=== PATIENT | female | born 1965 | race Caucasian/White ===

== ENCOUNTER 2017-02-27 18:11 | Observation (INO) ==
--- NOTE | 2017-02-27 18:27 | Emergency Department Note ---
Disposition Clinical Impression: Unstable angina pectoris Disposition: Admitted As Inpatient Condition: Fair Time of Disposition: 20:30 Chest Pain HPI - General Chief Complaint: ED Chest Pain Stated Complaint: chest pain Time Seen by Provider: 02/27/17 18:21 Source: EMS Mode of arrival: ambulatory Limitations: no limitations Vital Signs Reviewed: Yes Nursing Notes Reviewed: Yes - History of Present Illness HPI Narrative: 51-year-old female history of obesity and family history of MT, presents complaint of chest pain at rest. Patient states that she had 8 out of 10 substernal chest pain with radiation to her left neck and jaw. The pain made her feel nauseated and diaphoretic, this lasted for several minutes she called an ambulance arrived 20 minutes later to give her one nitroglycerin this brought her pain down to 6 out of 10. And relieved most of the pain except for the pain in her jaw. They also gave her 324 mg of baby aspirin. Patient states that she has no history of catheter she is a remote history of a stress test a years ago. Patient is a former smoker but currently denies smoking, she smoked for about 5-10 years, she is no history of diabetes or hypertension. Patient denies fever, chills, hemoptysis, weight changes, hematochezia, melena, denies any rectal bleeding or bleeding from anywhere Pt complaint: chest pain Onset (ago): minute(s) (45) Duration: intermittent Onset: during exertion Pain Location: substernal, left chest Severity scale (1-10): 3 Quality: aching, heaviness Improves with: nitroglycerin Worsens with: nothing Associated symptoms: Reports: nausea, diaphoresis, sense of impending doom. Denies: vomiting, dyspnea, cough, leg swelling Treatments prior to arrival chest pain: aspirin, nitroglycerin - Related Data Home Medications Medication Instructions Recorded Confirmed Black Cohosh Root [Black Cohosh] 200 mg PO DAILY 02/27/17 02/27/17 Calcium/Magnesium/Zinc 2 each PO HS 02/27/17 02/27/17 [Flqvqxv-Wzcuereuk-Iehm Tab] Cyanocobalamin (Vitamin B-12) 1,000 mcg PO DAILY 02/27/17 02/27/17 [Vitamin B12] Ergocalciferol (VITAMIN D2) 100,000 unit PO JOHNS 02/27/17 02/27/17 [Vitamin D2] Fluticasone Propionate Nasal 50 mcg NS DAILY 02/27/17 02/27/17 [Flonase] Furosemide [Lasix] 80 mg PO QAM 02/27/17 02/27/17 Gabapentin [Neurontin] 100 mg PO DAILY 02/27/17 02/27/17 HYDROmorphone [Dilaudid] 4 mg PO Q8H PRN 02/27/17 02/27/17 Ibuprofen [Motrin] 600 mg PO BID 02/27/17 02/27/17 LORazepam [Ativan] 0.5 mg PO BID PRN 02/27/17 02/27/17 Levothyroxine [Synthroid] 50 mcg PO 0630 02/27/17 02/27/17 Omeprazole [PriLOSEC] 40 mg PO HS 02/27/17 02/27/17 Potassium Chloride [K-Tab ER] 20 meq PO BID 02/27/17 02/27/17 Ubidecarenone [Co Q-10] 30 mg PO DAILY 02/27/17 02/27/17 Allergies Allergy/AdvReac Type Severity Reaction Status Date / Time No Known Allergies Allergy Verified 02/27/17 18:41 All systems ED: reviewed and negative except as stated. Review of Systems: As Per HPI Constitutional: Denies: fever, chills Eyes: Denies: eye pain ENT ED: Denies: ear pain Cardiovascular: Reports: as per HPI, chest pain Respiratory: Denies: cough, dyspnea Gastrointestinal: Denies: abdominal pain Genitourinary: Denies: urgency Musculoskeletal: Denies: back pain Integumentary: Denies: rash Neurological: Denies: headache, weakness Psychiatric: Denies: anxiety Endocrine: Denies: fatigue Hematological/Lymphatic: Denies: easy bleeding Chest Pain PMH - Past Medical History Medical history: Reports: fibromyalgia Psychiatric history: Reports: anxiety, depression - Social History Smoking Status: Former smoker Alcohol use: Reports: none Drug use: Reports: none Physical Exam Constitutional: alert and oriented, will signs stable, patient appears uncomfortable. Neck: normal inspection, neck is supple, no JVD Resp: normal chest inspection, CTA bilaterally, no resp distress, no wheezes/ rales/rhonchi CV: RRR, no murmurs/gallops/rubs, S1 and S2 heard Extremity: +2 bilateral radial and posterial tibial pulses, no pedal edema GI: normal inspection, Soft, NTND, no peritoneal signs, no palpable abdominal aortic aneurysm Back: normal inspection, no tenderness to palpation Neuro: A&O3, no gross motor or sensory deficits bilaterally MSK: normal inspection, bilateral UE and LE with normal ROM Skin: No rashes, skin warm, dry, intact - General Limitations: no limitations General appearance: alert, in no apparent distress Course Course Narrative: 51-year-old female with risk factors including family history, former smoking, obesity, patient has symptoms suggestive of unstable angina, her pain was during rest and improved with nitroglycerin, she is back to 3 out of 10 pain, will try additional nitroglycerin trial aspirin was given prehospital 324 mg documented, chest pain workup with EKG shows no evidence of ischemic changes plan for troponins chest x-ray reassess. - Reevaluation(s) Reevaluation #1: Patient 2/10 chest pain after nitroglycerin, I did discuss case with the hospitalist, they referred admission for chest pain, given the patient's pain is unstable and occurring during rest, and she continues to have chest pain started nitroglycerin drip, plan for heparinization for unstable angina added coags, admission to hospital, Dr barnett adccepting - Consultations Consultation #1: I spoke with Dr Gautam, he agrees for heparinization given acute onset of unstable angina, nitroglycerin drip and consultation cardiology, he recommends call overnight if her troponin upon elevates, otherwise agrees with plan for hospitalist admission for troponin trending Time: 20:10 Vital Signs Temperature 97.8 F 02/27/17 18:13 Pulse Rate 80 02/27/17 18:13 Respiratory Rate 18 02/27/17 18:13 Blood Pressure 106/85 02/27/17 18:13 O2 Sat by Pulse Oximetry 98 02/27/17 18:13 Temperature 98 F 02/27/17 21:18 Pulse Rate 69 02/27/17 21:18 Respiratory Rate 17 02/27/17 21:18 Blood Pressure 116/71 02/27/17 21:18 O2 Sat by Pulse Oximetry 96 02/27/17 21:18 Oxygen Delivery Oxygen Delivery Room Air Chest Pain - Differential Diagnosis Likely: pneumothorax, stable angina, unstable angina pectoris, atypical chest pain, chest pain - Medical Records Medical records reviewed: Yes I reviewed the patient's medical records. - Lab Data Lab results reviewed: Yes I reviewed the patient's lab results. Result diagrams: 02/27/17 20:22 02/27/17 18:35 Lab Results 02/27/17 02/27/17 02/27/17 Range/Units 18:35 18:35 18:35 WBC 7.5 (4.3-11.1) K/mcL RBC 4.86 (3.82-4.97) M/mcL Hgb 14.7 (11.5-15.4) g/dL Hct 42.6 (35.3-44.9) % MCV 87.7 (83.0-100.0) fL MCH 30.2 (28.0-33.3) pg MCHC 34.5 (31.6-35.5) g/dL RDW 12.2 (11.5-14.5) % Plt Count 289 (140-400) K/mcL MPV 10.6 (9.4-12.4) fL Immature Gran % 0.3 (0-4) % Seg Neutrophils % 49.5 % Lymphocytes % 38.2 % Monocytes % 10.4 % Eosinophils % 0.9 % Basophils % 0.7 % Neutrophils # 3.7 (1.6-8.9) K/mcL Lymphocytes # 2.9 (0.6-4.6) K/mcL Monocytes # 0.8 (0.0-1.3) K/mcL Eosinophils # 0.1 (0.0-0.6) K/mcL Basophils # 0.1 (0.0-0.2) K/mcL Sodium 140 (136-145) mEq/L Potassium 3.6 (3.5-4.5) mEq/L Chloride 103 (98-109) mEq/L Carbon Dioxide 28 (19-29) mEq/L BUN 13 (7-20) mg/dL Creatinine 0.78 (0.57-1.11) mg/dL Est GFR ( Amer) > 60 (> 60) Est GFR (Non-Af Amer) > 60 (> 60) BUN/Creatinine Ratio 17 (6-26) Glucose 110 H (70-99) mg/dL Calculated Osmolality 291 (280-300) Calcium 9.8 (8.6-10.8) mg/dL Troponin I 0.01 (0-0.03) ng/mL - Radiology Data Radiology results reviewed: Yes I reviewed the patient's radiology results. Chest X-Ray 02/27/17 18:24 IMPRESSION: Clear lungs. D/ / Raimundo Ryan MD / Raimundo Ryan MD Interpreting Provider: Raimundo Ryan MD - EKG Data EKG attestation: Yes I reviewed and interpreted this EKG. EKG shows normal: sinus rhythm Rate: normal (61 bpm MN 147 QRS 80 QTC [address] segment elevations or depressions.) When compared to previous EKG there are: previous EKG unavailable Interpretation: other (Repeat EKG shows heart rate 61 bpm, no ST segment elevations or depressions, normal MN QRS and QT intervals) - Core Measures AMI Core Measures Followed: Yes (4-81 mg baby aspirin given by EMS) Heart Score - Score History: Highly Suspicious EKG: Normal Age: 45-65 Risk Factors: 1-2 risk factors Troponin: Less than normal limit HEART Score Total: 4 Attestation Statement - Attestation Attestation: I examined this patient and my medical decision-making was reviewed with the Resident Physician, Dr. Magaña. I agree with the documented findings, disposition and treatment plan as described except to the extent set forth below. Patient is a 51-year-old white female who presents to the emergency By EMS today for substernal and left-sided chest pain radiating into her neck and jaw which began at rest at home approximately 45 minutes prior to arrival associated with nausea and diaphoresis. Patient received aspirin and 1 nitroglycerin by medics and had almost complete relief of her symptoms. On arrival to the ED and on our initial assessment pain began to return. Patient denies any significant cardiac history, stating that she did have a chemical stress test approx 7-8 years ago at [place] which was within normal limits. Patient has also had Holter monitor testing since that time which was also normal. Patient has had no symptoms since that time until today. Patient does have a family history of MT in her parents. Patient denies any other symptoms at this time. I agree with the physical exam as documented. Patient with stable vital signs and my assessment and in no acute distress although still complaining of approximately 2 out of 10 in severity chest pain. This was after 2 nitroglycerin in the emergency department and it had reduced from 6 to a 2. Initial EKG showed no acute ischemic change was normal sinus rhythm and no change from prior EKGs in our system. Patient had lab evaluation including thyroid testing and troponin as well as a chest x-ray. All of patient's labs and imaging are within normal limits. Due to ongoing pain at rest we went ahead and initiated a nitro drip, obtained a second EKG which remains unchanged, and we will start patient on heparin drip for unstable angina. Case was discussed with home coordinator to agrees with management and wants to be notified overnight if there is any change in her troponin. Case was discussed with the hospitalist who accepted the patient for admission. She remains hemodynamically stable at this time and current pain is 1/10.
[2017-02-27 18:41] LABS: Basophils # 0.1 K/mcL (0.0-0.2); Basophils % 0.7 %; Eosinophils # 0.1 K/mcL (0.0-0.6); Eosinophils % 0.9 %; Hematocrit 42.6 % (35.3-44.9); Hemoglobin 14.7 g/dL (11.5-15.4); Immature Granulocytes % 0.3 % (0-4); Lymphocytes # 2.9 K/mcL (0.6-4.6); Lymphocytes % 38.2 %; Mean Corpuscular HGB Conc 34.5 g/dL (31.6-35.5); Mean Corpuscular Hemoglobin 30.2 pg (28.0-33.3); Mean Corpuscular Volume 87.7 fL (83.0-100.0); Mean Platelet Volume 10.6 fL (9.4-12.4); Monocytes # 0.8 K/mcL (0.0-1.3); Monocytes % 10.4 %; Neutrophils # 3.7 K/mcL (1.6-8.9); Platelet Count 289 K/mcL (140-400); Red Blood Count 4.86 M/mcL (3.82-4.97); Red Cell Distribution Width 12.2 % (11.5-14.5); Segmented Neutrophils % 49.5 %
[2017-02-27] MEDS: Nitroglycerin 0.4 MG TAB.SUBL SL ONE ×2 (18:47→18:52)
[2017-02-27 18:55] LABS: BUN/Creatinine Ratio 17 (6-26); Blood Urea Nitrogen 13 mg/dL (7-20); Calcium 9.8 mg/dL (8.6-10.8); Carbon Dioxide 28 mEq/L (19-29); Chloride 103 mEq/L (98-109); Glucose 110 mg/dL (70-99); Osmolality,Calculated 291 (280-300); Potassium 3.6 mEq/L (3.5-4.5); Sodium 140 mEq/L (136-145); eGFR For African Americans > 60 (> 60); eGFR For Non-African Americans > 60 (> 60)
[2017-02-27] MEDS ORDERED: *HR* Heparin 5,000 UNIT/ML VIAL IVP PRN ×2 (20:05)
[2017-02-27] MEDS ORDERED: *HR* Heparin 5,000 UNIT/ML VIAL IVP ONE (20:05)
[2017-02-27] MEDS ORDERED: Nitroglycerin 25 MG/250 ML INFUS..BTL IVC SCH (20:15)
[2017-02-27] MEDS ORDERED: Heparin 25,000 UNIT/500 ML D5W 25,000 UNIT/500 ML MLS IVC SCH (20:15)
[2017-02-27 20:28] LABS: Hematocrit 40.3 % (35.3-44.9); Hemoglobin 13.7 g/dL (11.5-15.4); Mean Corpuscular Hemoglobin 30.2 pg (28.0-33.3); Mean Platelet Volume 10.6 fL (9.4-12.4); Platelet Count 276 K/mcL (140-400); Red Blood Count 4.53 M/mcL (3.82-4.97); Red Cell Distribution Width 12.3 % (11.5-14.5)
[2017-02-27 20:33] LABS: INR 1.1; Prothrombin Time 11.6 Seconds (9.4-12.1)
[2017-02-27 20:36] LABS: Activated Partial Thrombo Time 28.3 Seconds (26.0-36.0)
[2017-02-27] MEDS ORDERED: *HR* HYDROcodone/Acet 5/325 mg TABLET PO PRN (23:05)
[2017-02-27] MEDS ORDERED: Ondansetron 4 MG/2 ML VIAL IVP PRN (23:05)
[2017-02-27] MEDS ORDERED: Naloxone 0.4 MG/ML INJ IVP PRN (23:05)
[2017-02-27] MEDS ORDERED: MOM Conc 10 ML UD.LIQ PO PRN (23:05)
[2017-02-27] MEDS ORDERED: *HR* Promethazine 25 MG/ML VIAL IVP PRN (23:05)
[2017-02-27] MEDS ORDERED: Acetaminophen 325 MG TABLET PO PRN (23:05)
[2017-02-27] MEDS: *HR* Morphine 2 MG/ML SYRINGE IVP PRN (23:42)
[2017-02-28] MEDS ORDERED: *HR* LORazepam 0.5 MG TABLET PO PRN
--- NOTE | 2017-02-28 00:01 | Internal Med History&Physical ---
Date of Encounter: 02/27/17 Time of Encounter: 23:58 Assessment and Plan (1) Unstable angina pectoris Current visit: Yes Status: Acute Will place the pt into Tele for observation Reviewed her EKG - no acute changes, NSR VR-75, No ST, T changes So far negative troponin However her pain relived with Nitro gtt So will cont nitro gtt and try to wean her off the Nitro gtt as she tolerates Card consulted.. recommend Heparin gtt Placed her on ASA 81mg Morphine PRN for pain She does have reproducible chest wall tenderness too.. I am not sure this is her fibromyalgia related pain will keep her NPO now Ordered Prerna scan stress test in AM (2) Chest pain Current visit: Yes Status: Acute see above Qualifiers: Qualified Code(s): I20.0 - Unstable angina (3) Fibromyalgia Current visit: Yes Status: Chronic resumed all her home meds (4) Low back pain Current visit: Yes Status: Chronic Placed her on IV morphine PRN Qualifiers: Qualified Code(s): M54.5 - Low back pain; G89.29 - Other chronic pain; G89.29 - Other chronic pain (5) Narcotic dependence Current visit: Yes Status: Acute continued pain meds Internal Medicine - H&P: HPI Chief complaint: chest pain Admitted From: Emergency Dept Plans for Post Hospital Care: Home History of present illness: Ms. Wells is a 51 year old female with known PMH of Fibromyalgia, Chronic low back pain and chronic narcotic dependent, who presented to ER c/o since this evening located sub sternal region, initially started Rt side jaw discomfort and then radiating to her chest, 8/10 in severity lasted for more than an hour. Her pain slightly relived to SL Nitro , however she was started on Nitro gtt in the ER, now her CP completely resolved. She also mentioned she felt nauseated and sick to her stomach with this chest pain. She also mentioned she had normal stress test a couple of years ago. Past Med Surg Social Fam HX - Past Medical History Medical history: fibromyalgia Psychiatric history: anxiety, depression - Past Surgical History Surgical History: cholecystectomy - Social History Smoking Status: Former smoker Smokeless Tobacco Status: No Alcohol use: none Drug use: none - Family History Father Living Status: Age at : 78 Cause of : CVA Hx Family Cardiac Disorders: Yes Hx Family Respiratory Disorders: Yes Hx Family Cancer: Yes Hx Family GI Disorders: Yes Hx Family Genitourinary Disorders: No Hx Family Endocrine Disorder: Yes Hx Family Musculoskeletal Disorders: No Hx Family Neuromuscular Disorders: No Hx Family Neurologic Disorders: Yes Hx Family HEENT Disorders: No Hx Family Autoimmune Disorders: No Hx Family Psychosocial Disorders: No Hx Family Medical Disorders: No Mother Hx Family Cardiac Disorders: Yes (had GA / CABG at 80's yrs age) Internal Medicine - H&P: Meds Black Cohosh Root [Black Cohosh] 200 mg PO DAILY 02/27/17 [History] Calcium/Magnesium/Zinc [Osbveta-Qzmvrhotb-Lvzp Tab] 2 each PO HS 02/27/17 [ History] Cyanocobalamin (Vitamin B-12) [Vitamin B12] 1,000 mcg PO DAILY 02/27/17 [History ] Ergocalciferol (VITAMIN D2) [Vitamin D2] 100,000 unit PO JOHNS 02/27/17 [History] Fluticasone Propionate Nasal [Flonase] 50 mcg NS DAILY 02/27/17 [History] Furosemide [Lasix] 80 mg PO QAM 02/27/17 [History] Gabapentin [Neurontin] 100 mg PO DAILY 02/27/17 [History] HYDROmorphone [Dilaudid] 4 mg PO Q8H PRN 02/27/17 [History] Ibuprofen [Motrin] 600 mg PO BID 02/27/17 [History] LORazepam [Ativan] 0.5 mg PO BID PRN 02/27/17 [History] Levothyroxine [Synthroid] 50 mcg PO 0630 02/27/17 [History] Omeprazole [PriLOSEC] 40 mg PO HS 02/27/17 [History] Potassium Chloride [K-Tab ER] 20 meq PO BID 02/27/17 [History] Ubidecarenone [Co Q-10] 30 mg PO DAILY 02/27/17 [History] 3 Allergy/AdvReac Type Severity Reaction Status Date / Time No Known Allergies Allergy Verified 02/27/17 18:41 All Systems PM: A 10-system review of systems was performed and is negative for pertinent findings except as documented above in the HPI. Review of systems: All the systems are reviewed everything is benign except the systems and symptoms I mentioned in the history of present illness - Constitutional Vitals: Temp Pulse Resp BP Pulse Ox 98.1 F 84 16 124/67 96 02/27/17 23:34 02/27/17 23:34 02/27/17 23:34 02/27/17 23:34 02/27/17 21:18 General appearance: Present: A&O X 3, no acute distress, answers questions appropriately - Head Head exam: Present: atraumatic, normal inspection - Respiratory Respiratory exam: Present: chest wall tenderness (reproducible chest wall pain) , decreased breath sounds. Absent: rales, respiratory distress, rhonchi, wheezes - Cardiovascular Cardiovascular exam: Present: +S1, +S2 - GI/Abdominal GI/Abdominal exam: Present: soft. Absent: distended, rebound, rigid, tenderness - Extremities Exam Extremities exam: Absent: calf tenderness, pedal edema, tenderness - Back Exam Back exam: Present: paraspinal tenderness. Absent: CVA tenderness (L), CVA tenderness (R) - Neurological Exam Neurological exam: Present: alert, oriented X3 - Psychiatric Psychiatric exam: Present: normal affect, normal mood - Skin Skin exam: Present: intact Internal Med - H&P Results - Labs CBC & Chem 7: 02/27/17 20:22 02/27/17 18:35 Labs: Short CBC 02/27/17 Range/Units 20:22 WBC 7.2 (4.3-11.1) K/mcL Hgb 13.7 (11.5-15.4) g/dL Hct 40.3 (35.3-44.9) % Plt Count 276 (140-400) K/mcL
[2017-02-28 00:40] LABS: INR 1.1; Prothrombin Time 12.2 Seconds (9.4-12.1)
[2017-02-28 00:49] LABS: Chol/HDL Ratio 3.3 (0-4.9)
[2017-02-28] MEDS: *HR* Morphine 2 MG/ML SYRINGE IVP PRN (04:57)
[2017-02-28] MEDS ORDERED: Regadenoson 0.4 MG/5 ML SYRINGE IVP ONE (06:17)
[2017-02-28] MEDS ORDERED: Fluticasone Propionate Nasal 50 MCG/SPRAY BOTTLE NS SCH (09:00)
[2017-02-28] MEDS ORDERED: BLACK COHOSH ROOT PO SCH (09:00)
[2017-02-28] MEDS ORDERED: Aspirin Enteric Coated 81 MG Tablet PO SCH (09:00)
[2017-02-28] MEDS ORDERED: Cyanocobalamin (B-12) 1,000 MCG TABLET PO SCH (09:00)
[2017-02-28] MEDS ORDERED: Famotidine 20 MG TABLET PO SCH (09:00)
[2017-02-28] MEDS ORDERED: UBIDECARENONE 30 MG PO SCH (09:00)
[2017-02-28] MEDS ORDERED: Gabapentin 100 MG CAPSULE PO SCH (09:00)
[2017-02-28] MEDS ORDERED: Furosemide 40 MG TABLET PO SCH (09:00)
--- NOTE | 2017-02-28 10:29 | Nuclear Medicine Stress Report ---
Regadenoson Nuclear Stress Name: Soni Wells Date of Study: 02/28/2017 Date: 1965 Ht: 63.0 in Medical Record#: [id number] Age: 51 Wt: 219.0 lb Gender: Female Order #: [id number] Location: [facility] Room: [facility] Supervising Provider: Marcel Castrejon CNP Reading Physician: Kong Moraes DO, FACC, FASWA Ordering Physician: Branden Hallman DO Stress Technologist: Kristin Augustin, POKER MACHINE ATTENDANT, CCT, CPFT Pop Singer: Tomás Hernandez Indications: Chest Pain Impression: Pharmacologic stress ECG is negative for ischemia at level of heart rate achieved. Gated EF = 69%. Perfusion imaging was negative for ischemia or infarct. Stress Test Summary: Stress Test Type: Pharmacologic Regadenoson 0.4mg/5ml given IV Baseline Information: Initial Heart Rate: 67 Blood Pressure: 94/62 Stress Information: Stress Time: 4 min sec Test Terminated Due to (primary): As per protocol Maximum Blood Pressure: 100/64 Maximum Heart Rate: 108 Percent Maximum Heart Rate Achieved: 63 Double Product: 108 METS Reached: 1 Symptoms: Shortness of breath Nuclear Summary: SPECT myocardial perfusion imaging using Tc99m Sestamibi given intravenously was performed at rest and following cardiac stress testing. The resting images were obtained following initial dose of 11.7 mCi. Following stress an additional dose of 33.8 mCi was given at peak exercise or 30 seconds post regadenoson infusion. Medication Given: Time Medication Dose Units Route Findings: Stress Note * Resting ECG demonstrated normal sinus rhythm. * No baseline arrhythmias were noted. * Pharmacologic stress ECG is negative for ischemia at level of heart rate achieved. * No arrhythmias were noted during stress. * Patient had no chest pain during stress. Hemodynamic responses * Normal hemodynamic responses to pharmacologic stress. Study Quality * Study quality is good. Gated EF % * Gated EF = 69%. Left Ventricle * The left ventricle is not dilated. * LVEDV = 100 mL. NORMALS * Normal wall motion. * Normal Segmental Perfusion in rest. * Normal segmental perfusion in stress. TID * No evidence of transient ischemic dilatation. TID ratio * TID ratio = 1.17. Lung Uptake * There is no evidence of increase lung uptake. Updated by Kong Moraes DO, RYLIE, AVELINO, JUANA on 02/28/2017 10:22:53 AM electronically signed on 02/28/2017 10:23:54 AM with status of Final
[2017-02-28] MEDS ORDERED: Acetaminophen/Butalbital/CaffeineTABLET PO PRN (10:32)
--- NOTE | 2017-02-28 12:25 | Electrocardiograph Report ---
[place] [id number] Test Date: 2017-02-27 Pat Name: Soni Wells Department: 102 Room: [facility] Gender: [employer] Supervisor: Tmr : 1965 Requested By: Jacob Magaña Order Number: [id number] Reading MD: Maximo Barnard Measurements Intervals [place] Rate: 61 P: 54 WV: 147 QRS: -3 QRSD: 80 T: 20 QT: 385 QTc: 389 Interpretive Statements SINUS RHYTHM WITH SINUS ARRHYTHMIA Electronically Signed On 02-28-2017 12:23:12 EDT by Maximo Barnard
--- NOTE | 2017-02-28 12:50 | Discharge Summary ---
Date of Encounter: 02/28/17 Time of Encounter: 09:20 - Discharge Diagnosis (1) Chest pain Priority: Primary Status: Acute Qualifiers: Qualified Code(s): I20.0 - Unstable angina (2) Fibromyalgia Priority: Secondary Status: Chronic (3) Low back pain Priority: Secondary Status: Chronic Qualifiers: Chronicity: chronic Back pain laterality: unspecified Sciatica presence: unspecified whether sciatica present Qualified Code(s): M54.5 - Low back pain ; G89.29 - Other chronic pain; G89.29 - Other chronic pain (4) Narcotic dependence Priority: Secondary Status: Chronic - Discharge Medications Home Medications: Black Cohosh Root [Black Cohosh] 200 mg PO DAILY 02/27/17 [History] Calcium/Magnesium/Zinc [Lhnydrn-Yrculdfzx-Maku Tab] 2 each PO HS 02/27/17 [ History] Cyanocobalamin (Vitamin B-12) [Vitamin B12] 1,000 mcg PO DAILY 02/27/17 [History ] Ergocalciferol (VITAMIN D2) [Vitamin D2] 100,000 unit PO JOHNS 02/27/17 [History] Fluticasone Propionate Nasal [Flonase] 50 mcg NS DAILY 02/27/17 [History] Furosemide [Lasix] 80 mg PO QAM 02/27/17 [History] Gabapentin [Neurontin] 100 mg PO DAILY 02/27/17 [History] HYDROmorphone [Dilaudid] 4 mg PO Q8H PRN 02/27/17 [History] Ibuprofen [Motrin] 600 mg PO BID 02/27/17 [History] LORazepam [Ativan] 0.5 mg PO BID PRN 02/27/17 [History] Levothyroxine [Synthroid] 50 mcg PO 0630 02/27/17 [History] Omeprazole [PriLOSEC] 40 mg PO HS 02/27/17 [History] Potassium Chloride [K-Tab ER] 20 meq PO BID 02/27/17 [History] Ubidecarenone [Co Q-10] 30 mg PO DAILY 02/27/17 [History] Allergies/Adverse Reactions: 3 Allergy/AdvReac Type Severity Reaction Status Date / Time No Known Allergies Allergy Verified 02/27/17 18:41 Procedures/tests Complete & Pending: Procedures Performed prior 72 hours Category Date Time Status NM bonita perf SPECT multi [NM] Routine Exams 02/27/17 23:59 Taken EKG [ECG 12 lead ECG] [ECG] AM 0600 Y 02/28/17 06:00 Ordered EKG [ECG 12 lead ECG] [ECG] Stat Y 02/27/17 20:06 Completed EV echocardiogram Stat Y 02/28/17 10:31 Ordered SP pharm nuclear stress Routine Y 02/28/17 07:15 Completed Date of admission: 02/27/17 19:50 Primary care physician: Chau Lopez, Discharging clinician: Heather Hargrove Anticipated date of discharge: 02/28/17 - Patient Status Disposition: Home, Self-Care Condition: Good Functional capacity at discharge: independent ambulation Overall status at discharge: patient is back to baseline - Discharge Instructions Follow Up With: Chau Lopez MD [Primary Care Provider] - Additional Instructions: Please follow up with your primary care physician within five days after your discharge from the hospital. Please resume all your home medications as prescribed by your primary care physician. - Diet and Activity Activity: resume usual activities as tolerated Diet: low salt diet Hospital course: Ms. Wells is a 51 year old female with PMH of fibromyalgia, chronic low back pain , chronic narcotic dependance who presented to the ER for substernal chest pain with radiation to the jaw. She was admitted for further cardiac work up to rule out ACS. Her serial TNI have been negative. Nuclear stress test negative for any ischemic perfusion defect. Pt chest pain free at this time, however states she abruptly gets chest discomfort. Reports of having severe anxiety and stressors at home. She states she has been started on Lorazepam by her PCP at bedtime and will follow up with her PCP for increase in anxiety medication regimen. Will obtain 2D echo and if negative for any acute abnormality, will be discharged to home with follow up with PCP. Patient and in agreement to the discharge care and plan. - Time Spent with Patient Total time spent providing and/or coordinating discharge services: Less than 30 minutes - Constitutional Vitals: Temp Pulse Resp BP Pulse Ox 97.8 F 64 10 133/78 99 02/28/17 10:36 02/28/17 10:36 02/28/17 10:36 02/28/17 10:36 02/28/17 10:36 General appearance: Present: cooperative, A&O X 3, morbidly obese, no acute distress, answers questions appropriately - Head Head exam: Present: atraumatic, normocephalic - Eye Eye exam: Present: conjuntiva pink, sclera anicteric - Respiratory Respiratory exam: Present: CTAB. Absent: accessory muscle use, rales, rhonchi, wheezes - Cardiovascular Cardiovascular exam: Present: RRR, +S1, +S2. Absent: diastolic murmur, gallop, rubs, systolic murmur - GI/Abdominal GI/Abdominal exam: Present: normal bowel sounds, soft, no peritoneal signs. Absent: distended, tenderness - Extremities Exam Extremities exam: Present: full ROM, warm, radial pulses palpable and symmetrical. Absent: calf tenderness - Neurological Exam Neurological exam: Present: alert, oriented X3 - Psychiatric Psychiatric exam: Present: normal affect, normal mood
[2017-02-28 15:23] VITALS: BP 95/78
[2017-02-28] MEDS ORDERED: CALCIUM MAGNESIUM ZINC PO SCH (21:00)
--- NOTE | 2017-03-02 08:09 | Electrocardiograph Report ---
[place] [id number] Test Date: 2017-02-27 Pat Name: Soni Wells Department: 102 Room: 2NE29 Gender: F Community Pharmacist: [facility] : 1965 Requested By: Jacob Magaña Order Number: [id number] Reading MD: Rey Gasca MD Measurements Intervals [place] Rate: 75 P: 48 RI: 148 QRS: -13 QRSD: 81 T: 23 QT: 366 QTc: 395 Interpretive Statements SINUS RHYTHM LOW QRS VOLTAGE IN PRECORDIAL LEADS Electronically Signed On 03-02-2017 8:08:14 EDT by Rey Gasca MD
== END 2017-02-28 16:06 | disposition home or self-care (01) ==
LOC: EMEROO 18:11 → 3BNU 18:11 → SUATTDRO 19:50 → 2NENU 20:29
PROVIDERS: ADMIT Family Medicine; ATTEND Internal Medicine